=== PATIENT | male | born 1990 | race Caucasian/White ===

== ENCOUNTER 2016-10-18 16:55 | Emergency (ER) | payer BC ==
[~2016-10-18] VITALS: Ht 180.3 cm; Wt 89.3 kg
[~2016-10-18 16:55] MED LIST: MOTRIN600 MG PO; NORCO 7.5/321 TABLET PO
[2016-10-18 17:00] VITALS: BP 162/70
[2016-10-18] MEDS ORDERED: FLEXERIL10 MG PO ×2 (17:24→17:47)
[2016-10-18] MEDS ORDERED: MOTRIN600 MG PO (17:24)
[2016-10-18] MEDS ORDERED: MOTRIN800 MG PO (17:47)
== END 2016-10-18 18:00 | disposition home or self-care (01) ==
LOC: EME 16:55
DX: M54.5 Low back pain (principal); X50.9XXA Other and unspecified overexertion or strenuous movements or postures, initial encounter; Y99.0 Civilian activity done for income or pay; Y92.29 Other specified public building as the place of occurrence of the external cause
CPT/HCPCS: 99281; 99283; J1100